=== PATIENT | female | born 1985 | race Caucasian/White ===

== ENCOUNTER 2021-11-04 06:24 | Inpatient (IN) | payer OTHER ==
[2021-11-03 15:29] LABS: CARBON DIOXIDE,CO2 26.4 mmol/L (21.0-32.0); ESTIMATED GFR 46.3 ml/min; POTASSIUM,K 3.9 mmol/L (3.5-5.1)
[2021-11-04] MEDS ORDERED: Lactated Ringers 1,000 ML IV SCH (07:00)
[2021-11-04] MEDS ORDERED: Midazolam 1 MG/ML 2 ML SDV ONE (07:19)
[2021-11-04] MEDS ORDERED: Propofol 200 MG/20 ML SDV ONE (07:19)
[2021-11-04] MEDS ORDERED: fentaNYL 100 MCG/2 ML SDV ONE ×2 (07:19→10:20)
[2021-11-04] MEDS ORDERED: Water For Injection, Sterile 20 ML ONE (07:20)
[2021-11-04] MEDS ORDERED: Dexmedetomidine 200 MCG/2 ML SDV ONE (07:20)
[2021-11-04] MEDS ORDERED: Esmolol 100 MG/10 ML SDV ONE (07:20)
[2021-11-04] MEDS ORDERED: Rocuronium Bromide 50 MG/5 ML Syringe ONE ×2 (07:20→09:03)
[2021-11-04] MEDS ORDERED: Octyl 2-Cyanoacrylate 1 Tube ONE (07:23)
[2021-11-04] MEDS ORDERED: Bupivacaine 0.25% 10 ML SDV ONE (07:23)
[2021-11-04] MEDS ORDERED: Scopolamine 1.5 MG Transdermal Patch ONE (07:25)
[2021-11-04] MEDS ORDERED: Fluorescein 5 ML Vial ONE (07:33)
[2021-11-04] MEDS ORDERED: Ropivacaine 0.5% 5 MG/ML 30 ML SDV ONE ×2 (07:35→07:39)
[2021-11-04] MEDS ORDERED: Lidocaine 1% with EPINEPHrine 1:100,000 10 ML MDV ONE (07:36)
[2021-11-04] MEDS ORDERED: Ondansetron 4 MG/2 ML SDV IVPUSH PRN ×2 (07:57→10:56)
[2021-11-04] MEDS ORDERED: fentaNYL 100 MCG/2 ML SDV IVPUSH PRN (07:57)
[2021-11-04] MEDS ORDERED: Morphine 4 MG/ML VIAL IVPUSH PRN ×2 (07:57→10:56)
[2021-11-04] MEDS ORDERED: Albuterol 0.083% 2.5 MG/3 ML Neb Soln NEB PRN (07:57)
[2021-11-04] MEDS ORDERED: Naloxone 0.4 MG/ML SDV IVPUSH PRN (07:57)
[2021-11-04] MEDS ORDERED: HYDROmorphone 1 MG/ML Syringe IVPUSH PRN (07:57)
[2021-11-04] MEDS ORDERED: Metoclopramide 10 MG/2 ML SDV IVPUSH PRN (07:57)
[2021-11-04] MEDS ORDERED: Methylene Blue 50 MG/10 ML Ampule ONE (08:03)
[2021-11-04] MEDS ORDERED: Ketamine HCL/NACL, ISO-OSM 50 MG/5 ML Syringe ONE (08:15)
[2021-11-04] MEDS ORDERED: Dexamethasone 4 MG/ML 5 ML MDV ONE (08:35)
[2021-11-04] MEDS ORDERED: Ketorolac 30 MG/ML SDV ONE (08:55)
[2021-11-04] MEDS ORDERED: Furosemide 40 MG/4 ML VIAL ONE (08:55)
[2021-11-04] MEDS ORDERED: Ondansetron 4 MG/2 ML SDV ONE (08:55)
[2021-11-04] MEDS ORDERED: Sugammadex Sodium 200 MG/2 ML VIAL ONE (08:55)
[2021-11-04] MEDS ORDERED: Ketorolac 30 MG/ML SDV IVPUSH PRN (10:56)
[2021-11-04] MEDS ORDERED: Promethazine 25 MG/ML SDV IM PRN (10:56)
[2021-11-04] MEDS ORDERED: Acetaminophen/oxyCODONE 325-5 MG Tab PO PRN ×2 (10:56)
[2021-11-04] MEDS ORDERED: Ketorolac 30 MG/ML SDV IVPUSH ONE (18:56)
[2021-11-05 06:24] LABS: BLOOD UREA NITROGEN,BUN 7 mg/dL (7.0-18.0); CARBON DIOXIDE,CO2 23.9 mmol/L (21.0-32.0); CHLORIDE,CL 99 mmol/L (98-107); ESTIMATED GFR > 60.0 ml/min; GLUCOSE RANDOM 110 mg/dL (74-106); POTASSIUM,K 3.7 mmol/L (3.5-5.1); SODIUM,NA 135 mmol/L (136-145)
[2021-11-05] MEDS ORDERED: Octyl 2-Cyanoacrylate 1 APPLIC TUBE ONE (13:00)
== END 2021-11-05 14:25 | disposition home or self-care (01) | DRG 743 ==
LOC: MW.SDS 06:24 → MW.MS 08:30
PROVIDERS: ADMIT Obstetrics & Gynecology; ATTEND Obstetrics & Gynecology
PROC: 0UB90ZZ Excision of Uterus, Open Approach (ICD-10-PCS; principal; 2021-11-04)
PROC: 0TJB8ZZ Inspection of Bladder, Via Natural or Artificial Opening Endoscopic (ICD-10-PCS; 2021-11-04)
DX: D25.1 Intramural leiomyoma of uterus (principal); D25.0 Submucous leiomyoma of uterus; D25.2 Subserosal leiomyoma of uterus; Z90.89 Acquired absence of other organs; F17.210 Nicotine dependence, cigarettes, uncomplicated
CPT/HCPCS: 00840; 36415; 64488; 80048; 84703; 85025; 85027; 86850; 86900; 86901; A9270-GY; C1765; J0131; J1100; J1170; J1885; J1940; J2250; J2405; J2704; J2795; J3010; J3490; J7120